=== PATIENT | male | born 1960 | race Caucasian/White ===

== ENCOUNTER 2019-09-19 11:55 | Emergency (ER) | payer OTHER ==
[~2019-09-19] VITALS: Ht 182.9 cm; Wt 97.5 kg
[2019-09-19] MEDS ORDERED: OMEPRAZOLE40 MG PO (12:17)
[2019-09-19] MEDS ORDERED: XANAX 0.25 MG0.25 MG PO (12:17)
[2019-09-19] MEDS ORDERED: CYCLOBENZAPRINE10 MG PO (12:17)
[2019-09-19] MEDS ORDERED: FLUTICASONE PRO30 G1 TOP (12:17)
[2019-09-19] MEDS ORDERED: ALLOPURINOL 10100 M3 PO (12:17)
[2019-09-19] MEDS ORDERED: EXCEDRIN MIGRA1 EAC1 PO (12:18)
[2019-09-19] MEDS ORDERED: [UNRECOGNIZED DRUG - OTHER] TOP (12:19)
[2019-09-19 13:14] LABS: ABSOLUTE BASOPHILS 0.1 thou/uL (0.0-0.2); ABSOLUTE EOSINOPHILS 0.1 thou/uL (0.0-0.7); ABSOLUTE LYMPHOCYTES 1.4 thou/uL (0.8-5.3); ABSOLUTE MONOCYTES 1.1 thou/uL (0.0-1.2); ABSOLUTE NEUTROPHILS 5.5 thou/uL (1.6-8.1); BASOPHILS 1.4 %; EOSINOPHILS 0.6 %; HEMOGLOBIN 15.2 gm/dL (14.0-18.0); LYMPHOCYTES 17.6 %; MCH 31.6 pg (26.0-34.0); MCHC 34.5 g/dL (28.0-37.0); MCV 91.5 fL (80.0-100.0); MONOCYTES 13.9 %; MPV 7.6 fl. (7.2-11.1); NUCLEATED RBCS 0 /100WBC; PLATELET COUNT* 237 thou/uL (150-400); POLYS 66.5 %; RBC 4.81 mil/uL (4.50-6.00); RDW-CV 16.8 % (10.5-14.5); WBC 8.2 thou/uL (4.0-11.0)
[2019-09-19 13:22] LABS: CALCIUM 9.4 mg/dL (8.5-10.1); POTASSIUM 3.8 mmol/L (3.5-5.1)
[2019-09-19 13:27] LABS: ALBUMIN 3.3 g/dL (3.4-5.0); TOTAL BILIRUBIN 1.2 mg/dL (<0.1-1.0); TOTAL PROTEIN 8.6 g/dL (6.4-8.2)
[2019-09-19] MEDS ORDERED: DOXYCYCLINE 10100 MG PO (13:45)
[2019-09-19] MEDS ORDERED: VENTOLIN HFA 1818 GM INH (13:45)
[2019-09-19 14:24] VITALS: BP 117/76
--- NOTE | 2019-09-21 12:42 | EKG ---
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: : 1960 Requested By: Nikole Leonardo Order Number: [id number] MD: Siddhartha Townsend Measurements Intervals [place] Rate: 105 P: 67 [place]: 126 QRS: -18 QRSD: 102 T: 60 QT: 370 QTc: 490 Interpretive Statements Sinus tachycardia Biatrial enlargement Inferior infarct, old Baseline wander in lead(s) III,aVL,aVF No previous ECG available for comparison Electronically Signed On 09-21-2019 12:41:50 [employer]EEPING [employer]ESS [employer]ENDER by Siddhartha Townsend [email or web address] <ELECTRONICALLY SIGNED> By: Siddhartha Townsend MD, [facility] 09/21/19 1241 1326 Siddhartha Townsend MD, FACC /EPI
== END 2019-09-19 14:25 | disposition home or self-care (01) ==
LOC: M.ERS 11:55
PROVIDERS: Nurse Practitioner Family
DX: F41.9 Anxiety disorder, unspecified (principal); J18.9 Pneumonia, unspecified organism; K21.9 Gastro-esophageal reflux disease without esophagitis; M10.9 Gout, unspecified; G43.909 Migraine, unspecified, not intractable, without status migrainosus; Z90.89 Acquired absence of other organs; Z90.81 Acquired absence of spleen; Z88.6 Allergy status to analgesic agent

== ENCOUNTER 2019-10-12 02:49 | Emergency (ER) | payer OTHER ==
[~2019-10-12] VITALS: Ht 182.9 cm; Wt 97.5 kg
[~2019-10-12 02:49] MED LIST: ALLOPURINOL 10100 M3 PO; CYCLOBENZAPRINE10 MG PO; DOXYCYCLINE 10100 MG PO; EXCEDRIN MIGRA1 EAC1 PO; FLUTICASONE PRO30 G1 TOP; OMEPRAZOLE40 MG PO; VENTOLIN HFA 1818 GM INH; XANAX 0.25 MG0.25 MG PO; [UNRECOGNIZED DRUG - OTHER] TOP
[2019-10-12 03:54] VITALS: BP 150/87
== END 2019-10-12 04:01 | disposition home or self-care (01) ==
LOC: M.ERS 02:49
DX: F41.0 Panic disorder [episodic paroxysmal anxiety] (principal); G43.909 Migraine, unspecified, not intractable, without status migrainosus; K21.9 Gastro-esophageal reflux disease without esophagitis; M10.9 Gout, unspecified; Z88.6 Allergy status to analgesic agent; Z90.89 Acquired absence of other organs

== ENCOUNTER → 2019-12-12 | Outpatient (CLI) | payer OTHER ==
[~2019-12-12] MED LIST changes: +PREDNISONE50 MG PO; +VITAMIN D22000 UNIT PO; +ZPAK PO
[2019-12-12 15:10] LABS: ABSOLUTE BASOPHILS 0.1 thou/uL (0.0-0.2); ABSOLUTE EOSINOPHILS 0.6 thou/uL (0.0-0.7); ABSOLUTE LYMPHOCYTES 2.8 thou/uL (0.8-5.3); ABSOLUTE MONOCYTES 0.9 thou/uL (0.0-1.2); ABSOLUTE NEUTROPHILS 4.7 thou/uL (1.6-8.1); BASOPHILS 1.2 %; HEMATOCRIT 41.4 % (42.0-52.0); HEMOGLOBIN 14.3 gm/dL (14.0-18.0); LYMPHOCYTES 30.4 %; MCH 31.3 pg (26.0-34.0); MCHC 34.4 g/dL (28.0-37.0); MCV 91.1 fL (80.0-100.0); MONOCYTES 9.7 %; MPV 7.9 fl. (7.2-11.1); NUCLEATED RBCS 0 /100WBC; PLATELET COUNT* 270 thou/uL (150-400); POLYS 51.7 %; RBC 4.55 mil/uL (4.50-6.00); RDW-CV 17.1 % (10.5-14.5); WBC 9.2 thou/uL (4.0-11.0)
[2019-12-12 15:30] LABS: ALBUMIN 3.2 g/dL (3.4-5.0); CALCIUM 8.8 mg/dL (8.5-10.1); CREATININE 0.9 mg/dL (0.6-1.3); DIRECT BILIRUBIN 0.3 mg/dL (<0.1-0.3); POTASSIUM 3.9 mmol/L (3.5-5.1); TOTAL BILIRUBIN 1.1 mg/dL (<0.1-1.0); TOTAL PROTEIN 8.1 g/dL (6.4-8.2)
== END ==
LOC: M.CT 14:37
PROVIDERS: Internal Medicine
DX: J18.9 Pneumonia, unspecified organism (principal)

== ENCOUNTER → 2019-12-13 | Outpatient (CLI) | payer OTHER | LOC: M.CT 13:14 | DX: J84.89 Other specified interstitial pulmonary diseases (principal); J18.9 Pneumonia, unspecified organism; K74.60 Unspecified cirrhosis of liver; R19.00 Intra-abdominal and pelvic swelling, mass and lump, unspecified site; N20.0 Calculus of kidney; N28.1 Cyst of kidney, acquired ==

== ENCOUNTER 2019-12-14 15:20 | Emergency (ER) | payer OTHER ==
[~2019-12-14] VITALS: Ht 182.9 cm; Wt 99.8 kg
[~2019-12-14 15:20] MED LIST changes: -PREDNISONE50 MG PO; -VITAMIN D22000 UNIT PO; -ZPAK PO
[2019-12-14] MEDS ORDERED: VITAMIN D22000 UNIT PO (15:24)
[2019-12-14 15:57] LABS: ABSOLUTE BASOPHILS 0.1 thou/uL (0.0-0.2); ABSOLUTE EOSINOPHILS 0.7 thou/uL (0.0-0.7); ABSOLUTE LYMPHOCYTES 2.8 thou/uL (0.8-5.3); ABSOLUTE MONOCYTES 1.3 thou/uL (0.0-1.2); ABSOLUTE NEUTROPHILS 6.1 thou/uL (1.6-8.1); BASOPHILS 1.3 %; EOSINOPHILS 6.4 %; HEMATOCRIT 41.8 % (42.0-52.0); HEMOGLOBIN 14.4 gm/dL (14.0-18.0); LYMPHOCYTES 25.7 %; MCH 31.3 pg (26.0-34.0); MCHC 34.4 g/dL (28.0-37.0); MCV 91.1 fL (80.0-100.0); MONOCYTES 11.6 %; MPV 8.1 fl. (7.2-11.1); NUCLEATED RBCS 0 /100WBC; PLATELET COUNT* 280 thou/uL (150-400); RBC 4.59 mil/uL (4.50-6.00); RDW-CV 16.8 % (10.5-14.5)
[2019-12-14 16:02] LABS: INR 1.1; PROTIME 11.4 Seconds (9.20-11.50)
[2019-12-14 16:05] LABS: BE 0.6 mmol/L (-2 to +3); PO2 92.6 mmHg (75.0-100.0); pH 7.438 (7.340-7.450)
[2019-12-14 16:32] LABS: CALCIUM 8.3 mg/dL (8.5-10.1); CREATININE 0.9 mg/dL (0.6-1.3); POTASSIUM 3.6 mmol/L (3.5-5.1)
[2019-12-14 16:36] LABS: ALBUMIN 3.1 g/dL (3.4-5.0); MAGNESIUM 1.3 mg/dL (1.8-2.4); TOTAL BILIRUBIN 1.1 mg/dL (<0.1-1.0)
[2019-12-14] MEDS ORDERED: PREDNISONE50 MG PO (18:31)
[2019-12-14] MEDS ORDERED: VENTOLIN HFA 1818 GM INH (18:31)
[2019-12-14] MEDS ORDERED: ZPAK PO (18:31)
[2019-12-14 18:42] LABS: URINE BILIRUBIN NEGATIVE (Negative); URINE BLOOD NEGATIVE (Negative); URINE CLARITY CLEAR; URINE COLOR YELLOW; URINE GLUCOSE-RANDOM NEGATIVE (Negative); URINE KETONES NEGATIVE (Negative); URINE LEUKOCYTES-REFLEX NEGATIVE (Negative); URINE NITRITE-REFLEX NEGATIVE (Negative); URINE PROTEIN NEGATIVE (Negative); URINE UROBILINOGEN 0.2 E.U./dl (0.2-1.0)
[2019-12-14 18:56] VITALS: BP 132/70
--- NOTE | 2019-12-15 10:35 | EKG ---
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[facility] : 1960 Requested By: Carola Huerta Order Number: [id number] MD: Siddhartha Townsend Measurements Intervals [place] Rate: 96 P: 47 TN: 131 QRS: 2 QRSD: 88 T: 34 QT: 363 QTc: 459 Interpretive Statements Sinus rhythm Baseline wander in lead(s) V1,V2 Compared to ECG 09/19/2019 13:26:42 Sinus tachycardia no longer present Atrial abnormality no longer present Myocardial infarct finding no longer present Electronically Signed On 12-15-2019 10:33:55 CDT by Siddhartha Townsend [email or web address] <ELECTRONICALLY SIGNED> By: Siddhartha Townsend MD, FACC 12/15/19 1033 1524 1524 Siddhartha Townsend MD, [facility] /EPI
== END 2019-12-14 18:57 | disposition home or self-care (01) ==
LOC: M.ERS 15:20
PROVIDERS: Personal Emergency Response Attendant
DX: J40 Bronchitis, not specified as acute or chronic (principal); E83.42 Hypomagnesemia; M10.9 Gout, unspecified; K21.9 Gastro-esophageal reflux disease without esophagitis; G43.909 Migraine, unspecified, not intractable, without status migrainosus; Z90.89 Acquired absence of other organs; Z88.6 Allergy status to analgesic agent

== ENCOUNTER → 2020-01-03 | Outpatient (CLI) | payer OTHER ==
[~2020-01-03] MED LIST changes: +PREDNISONE50 MG PO; +VITAMIN D22000 UNIT PO; +ZPAK PO
== END ==
LOC: M.CT 12:10
DX: K74.60 Unspecified cirrhosis of liver (principal); R59.1 Generalized enlarged lymph nodes; J84.10 Pulmonary fibrosis, unspecified; K40.90 Unilateral inguinal hernia, without obstruction or gangrene, not specified as recurrent; R19.09 Other intra-abdominal and pelvic swelling, mass and lump

== ENCOUNTER 2020-05-04 22:09 | Emergency (ER) | payer OTHER ==
[~2020-05-04] VITALS: Ht 182.9 cm; Wt 90.7 kg
[2020-05-04] MEDS ORDERED: REVIA 50 MG TAB50 M1 PO (22:30)
[2020-05-04] MEDS ORDERED: HYDROXYZINE HCL25 M2 PO (22:30)
[2020-05-04] MEDS ORDERED: MELOXICAM15 MG PO (22:30)
[2020-05-04] MEDS ORDERED: POTASSIUM PO (22:31)
[2020-05-04] MEDS ORDERED: DESYREL150 MG PO (22:33)
[2020-05-04] MEDS ORDERED: ALLOPURINOL 10100 M3 PO (22:33)
[2020-05-04] MEDS ORDERED: VITAMIN B (22:34)
[2020-05-04] MEDS ORDERED: PROTONIX40 M4 PO (22:34)
[2020-05-04] MEDS ORDERED: ALPRAZOLAM 0.50.5 M1 PO (22:35)
[2020-05-04] MEDS ORDERED: BETAMETHASONE D50 G2 TOP (22:36)
[2020-05-04] MEDS ORDERED: NORCO 5-325 TA1 EAC2 PO (23:28)
[2020-05-04] MEDS ORDERED: ULTRAM 50MG TAB50 MG PO (23:41)
[2020-05-04 23:58] VITALS: BP 161/91
== END 2020-05-04 23:59 | disposition home or self-care (01) ==
LOC: M.ERS 22:09
DX: S70.11XA Contusion of right thigh, initial encounter (principal); M79.662 Pain in left lower leg; K21.9 Gastro-esophageal reflux disease without esophagitis; Z88.6 Allergy status to analgesic agent; Z90.89 Acquired absence of other organs; G43.909 Migraine, unspecified, not intractable, without status migrainosus; W22.8XXA Striking against or struck by other objects, initial encounter; Y93.89 Activity, other specified; Y92.89 Other specified places as the place of occurrence of the external cause; Y99.8 Other external cause status

== ENCOUNTER 2021-02-06 00:47 | Observation (INO) | payer BC ==
[~2021-02-06] VITALS: Ht 182.9 cm; Wt 83.9 kg
[~2021-02-06 00:47] MED LIST changes: +ALPRAZOLAM 0.50.5 M1 PO; +BETAMETHASONE D50 G2 TOP; +DESYREL150 MG PO; +HYDROXYZINE HCL25 M2 PO; +MELOXICAM15 MG PO; +NORCO 5-325 TA1 EAC2 PO; +POTASSIUM PO; +PROTONIX40 M4 PO; +REVIA 50 MG TAB50 M1 PO; +ULTRAM 50MG TAB50 MG PO; +VITAMIN B
[2021-02-06 00:52] VITALS: BP 130/81
[2021-02-06] MEDS ORDERED: NORCO7.5 PO (01:00)
[2021-02-06 01:52] LABS: ABSOLUTE BASOPHILS 0.1 thou/uL (0.0-0.2); ABSOLUTE EOSINOPHILS 0.5 thou/uL (0.0-0.7); ABSOLUTE LYMPHOCYTES 3.2 thou/uL (0.8-5.3); ABSOLUTE NEUTROPHILS 3.9 thou/uL (1.6-8.1); BASOPHILS 1.1 %; EOSINOPHILS 5.4 %; HEMATOCRIT 41.5 % (42.0-52.0); HEMOGLOBIN 14.1 gm/dL (14.0-18.0); LYMPHOCYTES 36.7 %; MCH 31.9 pg (26.0-34.0); MCHC 33.9 g/dL (28.0-37.0); MCV 94.2 fL (80.0-100.0); MONOCYTES 11.2 %; MPV 7.6 fl. (7.2-11.1); NUCLEATED RBCS 0 /100WBC; PLATELET COUNT* 238 thou/uL (150-400); POLYS 45.6 %; RBC 4.41 mil/uL (4.50-6.00); RDW-CV 15.9 % (10.5-14.5); WBC 8.6 thou/uL (4.0-11.0)
[2021-02-06 01:53] LABS: URINE BILIRUBIN NEGATIVE (Negative); URINE BLOOD NEGATIVE (Negative); URINE CLARITY CLEAR; URINE COLOR YELLOW; URINE GLUCOSE-RANDOM NEGATIVE (Negative); URINE KETONES NEGATIVE (Negative); URINE LEUKOCYTES-REFLEX NEGATIVE (Negative); URINE NITRITE-REFLEX NEGATIVE (Negative); URINE PROTEIN NEGATIVE (Negative); URINE UROBILINOGEN 0.2 E.U./dl (0.2-1.0)
[2021-02-06 01:56] LABS: CREATININE 0.9 mg/dL (0.6-1.3); POTASSIUM 3.8 mmol/L (3.5-5.1)
[2021-02-06 01:58] LABS: APTT 30.6 Seconds (25.0-31.3); INR 1.1; PROTIME 11.4 Seconds (9.20-11.50)
[2021-02-06 02:02] LABS: AMP/METHAMP Negative (Negative); BARBITURATES Negative (Negative); BENZODIAZEPINES Negative (Negative); COCAINE Negative (Negative); METHADONE Negative (Negative); OPIATES POSITIVE (Negative); PCP Negative (Negative); THC Negative (Negative)
[2021-02-06 02:06] LABS: ALBUMIN 3.5 g/dL (3.4-5.0); TOTAL BILIRUBIN 0.9 mg/dL (<0.1-1.0); TOTAL PROTEIN 7.7 g/dL (6.4-8.2)
[2021-02-06 09:09] VITALS: BP 101/65
--- NOTE | 2021-02-06 09:20 | EKG ---
[place] [address] ELECTROCARDIOGRAM REPORT Name: LISA THOMAS Room: [address] M.R.#: [id number] Admission: 02/06/21 Attend Phys: Susan Olsen MD Discharge: Date of : 58 Date of Service: 02/06/21 0055 Report #: [id number] THIS REPORT FOR: //name// [facility] ED Test Date: 2021-02-06 Test Time: 00:55:34 Pat Name: LISA THOMAS Department: Room: [facility] Gender: M Lpn: GORAN : 1960 Requested By: Carola Huerta Order Number: [id number] MD: Eric Urias Measurements Intervals [place] Rate: 79 P: 0 [place]: 152 QRS: -10 QRSD: 91 T: 70 QT: 386 QTc: 443 Interpretive Statements Sinus rhythm Baseline wander in lead(s) I,III,aVL,aVF Compared to ECG 12/14/2019 15:24:13 ST (T wave) deviation now present Electronically Signed On 02-06-2021 9:20:14 CDT by Eric Urias [email or web address] <ELECTRONICALLY SIGNED> By: Eric Urias MD, FACC 02/06/21 0920 0055 0055 Eric Urias MD, FAC /EPI
[2021-02-06 10:52] VITALS: BP 102/69
[2021-02-06 11:10] VITALS: BP 106/63
[2021-02-06] MEDS ORDERED: MELOXICAM15 MG PO (11:15)
[2021-02-06] MEDS ORDERED: SILDENAFIL20 MG PO (11:19)
[2021-02-06] MEDS ORDERED: DESYREL150 MG PO (11:20)
[2021-02-06] MEDS ORDERED: FLONASE 0.05%50 MCG NARES (11:20)
[2021-02-06] MEDS ORDERED: PROTONIX40 M4 PO (16:27)
[2021-02-06 17:15] VITALS: BP 106/63
--- NOTE | 2021-02-06 18:44 | NUR ---
PT ADMITTED TO ROOM 224 VIA CART FROM ED AT APPROX 0920, PT AOX4, NO C/O CHEST PAIN BUT C/O ANXIETY, HOME MEDS RECONCILED AND DR GTZ NOTIFIED MULTIPLE TIMES BEFORE ORDERS RECEIVED FOR ANXIETY MEDS WHICH WERE THEN GIVEN TO PT W/ SOME RELIEF. ADMISSION ASSESSMENT AND HX COMPLETED CHARTED, PT ORIENTED TO ROOM AND CALL LIGHT, PT WORKED W/ DR GTZ AND DC ORDERS RECEIVED W/ INSTRUCTIONS TO F/U W/ CARDIOLOGY AND PCP FOR GI ISSUES OUTPT. 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 PT DC'D BY W/ NURSING STAFF AND ALL PAPERWORK AND PERSONAL BELONGINGS TO OWN VEHICLE AT APPROX 1846
[2021-02-06 18:46] VITALS: BP 106/63
== END 2021-02-06 18:46 | disposition home or self-care (01) ==
LOC: M.ERS 00:47 → M.2W 05:45 → M.TBA-ER 05:45 → M.2W 09:28
PROVIDERS: Personal Emergency Response Attendant; ADMIT Family Medicine; ATTEND Family Medicine
DX: R07.89 Other chest pain (principal); Z20.822 Contact with and (suspected) exposure to COVID-19; F41.9 Anxiety disorder, unspecified; M10.9 Gout, unspecified; G43.909 Migraine, unspecified, not intractable, without status migrainosus; J84.10 Pulmonary fibrosis, unspecified; Z79.899 Other long term (current) drug therapy